=== PATIENT | female | born 1945 | race Caucasian/White ===

== ENCOUNTER → 2021-04-01 09:01 | Outpatient (BNVA) | payer MEDICARE, SELFPAY | PROVIDERS: PCP Nurse Practitioner Adult Health; Visit Provider Orthopaedic Surgery | DX: M17.11 Unilateral primary osteoarthritis, right knee (principal) | CPT/HCPCS: 20610; 99212; J1040 ==

== ENCOUNTER 2022-01-05 07:18 | Outpatient (REF) | payer MEDICARE, SELFPAY ==
--- NOTE | ~2022-01-05 | XR_ITS ---
EXAMINATION: XR KNEE STANDING, BILATERAL XR KNEE, RIGHT CLINICAL INFORMATION: Knee pain. COMPARISON: 06/28/2018 TECHNIQUE: Single view standing knees with 2 additional views right knee. FINDINGS: A left knee joint prosthesis is present which appears intact. Severe degenerative changes are present in the right knee with obliteration of the medial compartment and narrowing of the lateral compartment with chondrocalcinosis and calcification of the lateral meniscus. Marked degenerative changes are also seen at the patellofemoral compartment with marked osteophytes. A definite joint effusion is not seen at this time. Vascular calcifications noted. XR/XR knee RT 2V IMPRESSION: Severe tricompartmental osteoarthritis right knee without significant change.
--- NOTE | ~2022-01-05 | XR_ITS ---
EXAMINATION: XR KNEE STANDING, BILATERAL XR KNEE, RIGHT CLINICAL INFORMATION: Knee pain. COMPARISON: 06/28/2018 TECHNIQUE: Single view standing knees with 2 additional views right knee. FINDINGS: A left knee joint prosthesis is present which appears intact. Severe degenerative changes are present in the right knee with obliteration of the medial compartment and narrowing of the lateral compartment with chondrocalcinosis and calcification of the lateral meniscus. Marked degenerative changes are also seen at the patellofemoral compartment with marked osteophytes. A definite joint effusion is not seen at this time. Vascular calcifications noted. XR/XR knee standing BI IMPRESSION: Severe tricompartmental osteoarthritis right knee without significant change.
== END 2022-01-05 07:19 | disposition home or self-care (01) ==
LOC: HO.HOSX 07:18
PROVIDERS: Visit Provider Physician Assistant
DX: M17.11 Unilateral primary osteoarthritis, right knee (principal)
CPT/HCPCS: 20610; 73560; 73565; 99212; J1020

== ENCOUNTER → 2022-05-03 11:16 | Outpatient (BNVA) | payer MEDICARE, SELFPAY | PROVIDERS: PCP Nurse Practitioner Adult Health; Visit Provider Physician Assistant | DX: M17.11 Unilateral primary osteoarthritis, right knee (principal) | CPT/HCPCS: 20610; 99212; J1040 ==

== ENCOUNTER → 2022-10-14 12:28 | Outpatient (BNVA) | payer MEDICARE, SELFPAY | PROVIDERS: PCP Nurse Practitioner Adult Health; Visit Provider Physician Assistant | DX: M17.11 Unilateral primary osteoarthritis, right knee (principal); E11.9 Type 2 diabetes mellitus without complications | CPT/HCPCS: 20610; 99212; J1020 ==

== ENCOUNTER → 2023-01-11 10:52 | Outpatient (BNVA) | payer MEDICARE, SELFPAY | PROVIDERS: PCP Nurse Practitioner Adult Health; Visit Provider Physician Assistant | DX: M17.11 Unilateral primary osteoarthritis, right knee (principal); M25.561 Pain in right knee; Z96.652 Presence of left artificial knee joint | CPT/HCPCS: 20610; 99212; J1020 ==

== ENCOUNTER 2023-09-22 09:48 | Outpatient (AMB) | payer MEDICARE, SELFPAY ==
--- NOTE | 2023-09-22 10:12 | A.OFFVIS_ITS ---
Intake Intake Visit Reasons: OV - RT knee injection, last inj 01/11/23 Intake Note: Leticia is a 77 year old female who presents today for a repeat injection for her right knee, last injection 01/11/23. Allergies Sulfa (Sulfonamide Antibiotics) Allergy (Mild, Verified 01/11/23 10:56) HIVES HPI OV - RT knee injection, last inj 01/11/23 HPI Details Leticia is a 77 year old female who presents today for a repeat injection for her right knee, last injection 01/11/23. She reorts that the last injection gave her great relief but for a few days s/p injection she had increased pain. I did educate the patient that that may happen again after repeat injection. [facility] Medical History Diabetes HTN (hypertension) Osteoarthritis Urinary incontinence Surgical History History of left knee replacement Social History Alcohol intake: never Patient Tobacco Use Status: Never used Tobacco Current occupational status: disabled Review of Systems Const All systems reviewed & are unremarkable except as noted in HPI and below Physical Exam Const General: cooperative and no acute distress Orientation/consciousness: patient oriented x3 Resp Effort & Inspection: normal respiratory effort and able to speak in complete sentences Cardio Rate: regular rate Peripheral pulses: Peripheral pulses 2+ throughout GI Palpation (GI): Soft to palpation Skin Lesions: no lesions Rashes: no rashes Neuro General: patient oriented x3 Extrem Other: Right knee normal to inspection no ecchymosis, erythema or joint effusion. Crepitus felt on ROM. Patient is able to demonstrate full knee ROM. NVI. Psych Mental Status: mental status grossly normal Office Procedures Joint Injection/Drain Joint Injection/Drain Primary Site: right knee Prep: site was prepped using aseptic technique, ethochloride spray was applied and injection warnings given Injected: 40 mg of, DepoMedrol, with 8 mL of (2% plain lido ) and in the joint Approach Used: anterolateral Procedure: The patient tolerated the procedure well, but had some pain with the injection and there was some relief with the local anesthesia Coding 52211 - Large joint Procedure code (CPT) selection complete Assessment & Plan Assessment & Plan (1) Primary osteoarthritis of right knee: Code(s): M17.11 - Unilateral primary osteoarthritis, right knee (2) Diabetes mellitus: Code(s): E11.9 - Type 2 diabetes mellitus without complications Plan Leticia is a 77 year old female who presents today for a repeat injection for her right knee, last injection 01/11/23. She ambulates with a rollator walker. She reports that the last injection gave her great relief but for a few days s/p injection she had increased pain. I did educate the patient that that may happen again after repeat injection. After obtaining consent I injected the right knee with 40mg Depo. The patient tolerated the procedure well with no adverse effects. She will followup prn, sooner if needed Patient Instructions: Scribed for Farrah García PA-C by Xin Clarke medical device engineer, on 09/22/2023 at 10:02 am, EST. Coding Level of Care Code Est Pt Level 3 (96032) Diagnoses Primary osteoarthritis of right knee M17.11 Diabetes mellitus E11.9 CPT Codes Coding - 46170 Large joint: 02415 - Large joint ([id number])
== END 2023-09-22 10:12 | disposition home or self-care (01) ==
PROVIDERS: PCP Nurse Practitioner Adult Health; Visit Provider Physician Assistant
DX: M17.11 Unilateral primary osteoarthritis, right knee (principal)
CPT/HCPCS: 20610; 99213

== ENCOUNTER → 2023-09-22 09:48 | Outpatient (BNVA) | payer MEDICARE, SELFPAY | PROVIDERS: PCP Nurse Practitioner Adult Health; Visit Provider Physician Assistant | DX: M17.11 Unilateral primary osteoarthritis, right knee (principal); E11.9 Type 2 diabetes mellitus without complications | CPT/HCPCS: 20610; 99212; J1020 ==

== ENCOUNTER 2024-02-16 11:01 | Outpatient (AMB) | payer MEDICARE, SELFPAY ==
--- NOTE | 2024-02-16 11:13 | A.OFFVIS_ITS ---
Intake Visit Reasons: O/V RT knee injection, last inj 09/22/23 Intake Note: Leticia is a 77 year old female who presents today for a repeat injection for her right knee, last injection 09/22/23. Patient reports that her last injection gave her about 3 months. Allergies Sulfa (Sulfonamide Antibiotics) Allergy (Mild, Verified 01/11/23 10:56) HIVES HPI HPI O/V RT knee injection, last inj 09/22/23: Details: 78-year-old female who presents in the office today for a follow up of right knee OA. I last saw the patient in the office on 09/22/2023 when she was given a cortisone injection in the right knee. While in the office the patient reports that her last injection gave her about 3 months relief. Patient has a significant medical history of diabetes mellitus. [facility] Medical History Diabetes HTN (hypertension) Osteoarthritis Urinary incontinence Surgical History History of left knee replacement Social History Alcohol intake: never Patient Tobacco Use Status: Never used Tobacco Current occupational status: disabled Review of Systems Const All systems reviewed & are unremarkable except as noted in HPI and below Physical Exam Const General: cooperative, healthy appearing and no acute distress Resp Effort & Inspection: normal respiratory effort and able to speak in complete sentences Cardio Rate: regular rate Peripheral pulses: Peripheral pulses 2+ throughout GI Palpation (GI): Soft to palpation Skin Lesions: no lesions Rashes: no rashes Extrem Other: Right knee: normal to inspection no ecchymosis, erythema or joint effusion. Crepitus felt on ROM. Patient is able to demonstrate full knee ROM. NVI. Office Procedures Joint Injection/Drain Joint Injection/Drain Primary Site: right knee Prep: site was prepped using aseptic technique, ethochloride spray was applied and injection warnings given Injected: 40 mg of, DepoMedrol, with 8 mL of (2% plain lido ) and in the joint Approach Used: anterolateral Procedure: The patient tolerated the procedure well, but had some pain with the injection and there was some relief with the local anesthesia Coding 39652 - Large joint Procedure code (CPT) selection complete Assessment & Plan Assessment & Plan (1) Primary osteoarthritis of right knee: Code(s): M17.11 - Unilateral primary osteoarthritis, right knee Category: Medical (2) Diabetes mellitus: Code(s): E11.9 - Type 2 diabetes mellitus without complications Category: Medical Plan Ms. Apple is a 78-year-old female who presents in the office today for a follow up of right knee OA. I last saw the patient in the office on 09/22/2023 when she was given a cortisone injection in the right knee. While in the office the patient reports that her last injection gave her about 3 months relief. Patient has a significant medical history of diabetes mellitus. The patient was offered a cortisone injection in the right knee with 40 mg of DepoMedrol. The patient was explained the risk, benefits, and alternatives to receiving this injection. After receiving consent for the injection, the patient had the procedure done while in the office today. The patient tolerated the procedure well with no complications. Due to the patient?s history of diabetes, they were instructed to monitor her blood glucose level. The patient was informed that they could see a rise in their numbers and if the numbers became too high, they were instructed to call their PCP. The patient was also informed that they could have facial flushing as a side effect of the injection, but this will pass. Follow up will be PRN, or sooner if needed. Patient Instructions: Scribed by Xin Clarke medical laboratory technologist, for Farrah García PA-C on 02/16/2024 at 11:34 am, EST. Coding Level of Care Code Est Pt Level 4 (66680) Diagnoses Primary osteoarthritis of right knee M17.11 Diabetes mellitus E11.9 CPT Codes Coding - 05202 Large joint: 94556 - Large joint ([id number])
== END 2024-02-16 11:17 | disposition home or self-care (01) ==
PROVIDERS: PCP Nurse Practitioner Adult Health; Visit Provider Physician Assistant
DX: M17.11 Unilateral primary osteoarthritis, right knee (principal); E11.9 Type 2 diabetes mellitus without complications
CPT/HCPCS: 20610; 99214

== ENCOUNTER → 2024-02-16 11:01 | Outpatient (BNVA) | payer MEDICARE, SELFPAY | PROVIDERS: PCP Nurse Practitioner Adult Health; Visit Provider Physician Assistant | DX: M17.11 Unilateral primary osteoarthritis, right knee (principal); E11.9 Type 2 diabetes mellitus without complications | CPT/HCPCS: 20610; 99212; J1010 ==

== ENCOUNTER 2024-06-29 09:08 | Outpatient (AMB) | payer MEDICARE, SELFPAY ==
--- NOTE | 2024-06-29 09:23 | MHC.OFFVIS ---
Intake Visit Reasons: right knee injection, last inj 02/16/24 Intake Note: Leticia is a 77 year old female who presents today for a repeat injection for her right knee, last injection 02/16/24. Patient reports her last injection gave her relief and would like to repeat. Allergies Sulfa (Sulfonamide Antibiotics) Allergy (Mild, Verified 06/29/24 09:30) HIVES HPI HPI right knee injection, last inj 02/16/24: Details: 78-year-old female who presents in the office today for a follow-up of right knee osteoarthritis. I last saw the patient in the office on 02/16/24 when she was given a cortisone injection in the right knee. While in the office today, the patient reports her last cortisone injection gave her relief. She is interested in repeating the injections today. Patient has a significant medical history of diabetes mellitus. [facility] Medical History Diabetes HTN (hypertension) Osteoarthritis Urinary incontinence Surgical History History of left knee replacement Social History Alcohol intake: never Patient Tobacco Use Status: Never used Tobacco Current occupational status: disabled Review of Systems Const All systems reviewed & are unremarkable except as noted in HPI and below Physical Exam Const General: cooperative, healthy appearing and no acute distress Resp Effort & Inspection: normal respiratory effort and able to speak in complete sentences Cardio Rate: regular rate Peripheral pulses: Peripheral pulses 2+ throughout GI Palpation (GI): Soft to palpation Skin Lesions: no lesions Rashes: no rashes Extrem Other: Right knee: Normal to inspection no ecchymosis, erythema or joint effusion. Crepitus felt on ROM. Patient is able to demonstrate full knee ROM. NVI. Office Procedures Joint Injection/Aspiration Joint Injection/Aspiration Primary Site: right knee Prep: site was prepped using aseptic technique, ethochloride spray was applied and injection warnings given Injected: 40 mg of, DepoMedrol, with 8 mL of (2% plain lido ) and in the joint Approach Used: anterolateral Procedure: The patient tolerated the procedure well, but had some pain with the injection and there was some relief with the local anesthesia Coding 50303 - Large joint Procedure code (CPT) selection complete Assessment & Plan Assessment & Plan (1) Primary osteoarthritis of right knee: Code(s): M17.11 - Unilateral primary osteoarthritis, right knee Category: Medical (2) Diabetes mellitus: Code(s): E11.9 - Type 2 diabetes mellitus without complications Category: Medical Plan Ms. Apple is a 78-year-old female who presents in the office today for a follow-up of right knee osteoarthritis. I last saw the patient in the office on 02/16/24 when she was given a cortisone injection in the right knee. While in the office today, the patient reports her last cortisone injection gave her relief. She is interested in repeating the injections today. Patient has a significant medical history of diabetes mellitus. The patient was offered a cortisone injection in the right knee with 40 mg of DepoMedrol. The patient was explained the risks, benefits, and alternatives to receiving this injection. After receiving consent for the injection, the patient had the procedure done while in the office today. The patient tolerated the procedure well with no complications. Due to the patient?s history of diabetes, they were instructed to monitor her blood glucose level. The patient was informed that they could see a rise in their numbers and if the numbers became too high, they were instructed to call their PCP. The patient was also informed that they could have facial flushing as a side effect of the injection, but this will pass. Follow up will be PRN, or sooner if needed. Patient Instructions: Scribed by Ashwini Brandt medical instrument cable fabricator, for Farrah García PA-C on 06/29/24 at 9:40 am EST. Coding Level of Care Code Est Pt Level 4 (45224) Diagnoses Primary osteoarthritis of right knee M17.11 Diabetes mellitus E11.9 CPT Codes Coding - 96704 Large joint: 51336 - Large joint ([id number])
== END 2024-06-29 09:36 | disposition home or self-care (01) ==
PROVIDERS: PCP Nurse Practitioner Adult Health; Visit Provider Physician Assistant
DX: M17.11 Unilateral primary osteoarthritis, right knee (principal); E11.9 Type 2 diabetes mellitus without complications
CPT/HCPCS: 20610; 99214

== ENCOUNTER → 2024-06-29 09:08 | Outpatient (BNVA) | payer MEDICARE, SELFPAY | PROVIDERS: PCP Nurse Practitioner Adult Health; Visit Provider Physician Assistant | DX: M17.11 Unilateral primary osteoarthritis, right knee (principal); E11.9 Type 2 diabetes mellitus without complications | CPT/HCPCS: 20610; 99212; J1010 ==

== ENCOUNTER 2025-08-08 10:43 | Outpatient (AMB) | payer MEDICARE, SELFPAY ==
--- NOTE | 2025-08-08 10:53 | MHC.OFFVIS ---
Intake Visit Reasons: Inj-RT knee inj., last injection 06/29/24 Intake Note: Leticia is a 79 year old female who presents today for a repeat injection for her right knee, last injection was 06/29/24. Allergies Sulfa (Sulfonamide Antibiotics) Allergy (Mild, Verified 06/29/24 09:30) HIVES HPI HPI Inj-RT knee inj., last injection 06/29/24: Details: Ms. Apple this is a 79-year-old female who presents to the office today for follow up of chronic right knee pain. Last cortisone injection was 06/29/2024 which gave her relief. She is looking to repeat injection while in the office today. [facility] Medical History Diabetes HTN (hypertension) Osteoarthritis Urinary incontinence Surgical History History of left knee replacement Social History Alcohol intake: never Patient Tobacco Use Status: Never used Tobacco Current occupational status: disabled Review of Systems Const All systems reviewed & are unremarkable except as noted in HPI and below Physical Exam Const General: cooperative, healthy appearing and no acute distress Resp Effort & Inspection: normal respiratory effort and able to speak in complete sentences Cardio Rate: regular rate Peripheral pulses: Peripheral pulses 2+ throughout GI Palpation (GI): Soft to palpation Skin Lesions: no lesions Rashes: no rashes Extrem Other: Right knee: Normal to inspection no ecchymosis, erythema or joint effusion. Crepitus felt on ROM. Patient is able to demonstrate full knee ROM. NVI. Office Procedures AMB Joint Injection/Aspiration Joint Injection/Aspiration Primary Site: right knee Prep: site was prepped using aseptic technique, ethochloride spray was applied and injection warnings given Injected: 40 mg of, with 3 mL of, 1% plain lidocaine, 0.25% bupivacaine, in the joint and decadron Approach Used: anterolateral Procedure: The patient tolerated the procedure well, but had some pain with the injection and there was some relief with the local anesthesia Coding 39475 - Large joint Procedure code (CPT) selection complete Assessment & Plan Assessment & Plan (1) Primary osteoarthritis of right knee: Code(s): M17.11 - Unilateral primary osteoarthritis, right knee Category: Medical Plan Ms. Apple this is a 79-year-old female who presents to the office today for follow up of chronic right knee pain. Last cortisone injection was 06/29/2024 which gave her relief. She is looking to repeat injection while in the office today. The patient was offered a cortisone injection in the right knee. The patient was explained the risks, benefits, and alternatives to receiving this injection. After receiving consent for the injection, the patient had the procedure done while in the office today. The patient tolerated the procedure well with no complications. Follow-up will be PRN, or sooner if needed Coding Level of Care Code Est Pt Level 3 (20536) Diagnoses Primary osteoarthritis of right knee M17.11 CPT Codes Coding - 72069 Large joint: 15412 - Large joint ([id number])
--- OUTSIDE RECORDS SUMMARY | 2025-08-08 13:01 | XMS_ITS | Clinical Summary ---
Author Organization [facility] Address [address] [place] [id number] Phone Care Team Providers Care Hydrometer Calibrator Name Role Phone Zheng Crews [facility] Primary Care Provider [phone] Constantino Sher MD Unavailable [phone] Rosemary Hough MD Unavailable [phone] Chani Potter OD Unavailable Unavailable Eliot Gottlieb MD Unavailable Ailin Mendoza MD Unavailable [phone] Zheng Crews [facility] Unavailable Franck Brown MD Unavailable Allergies Active Allergy Reactions Criticality Noted Date Comments Sulfa (Sulfonamide Antibiotics) Hives 06/03 Medications lancets (ONETOUCH DELICA LANCETS) 33 gauge MiscIndications :Type 2 diabetes mellitus with diabetic neuropathy, with long-term current use of insulin Inject 1 each into the skin 2 (two) times a day. DX:E11.40 200 each 3 08/17/20 21 Active acetaminophen (TYLENOL) 500 MG tablet Take 1,000 mg by mouth as needed. Active ONETOUCH ULTRA TEST Strp stripsIndicatio ns:Type 2 diabetes mellitus with diabetic neuropathy, with long-term current use of insulin Inject 1 each into the skin 3 (three) times a day. E11.40 300 strip 3 01/15/20 23 Active vitamins A,C,E-zinc-tao er (PRESERVISION AREDS) 4,296 mcg-226 mg-90 mg Cap Take 1 capsule by mouth 2 (two) times a day with meals. Active blood-glucose sensor (FREESTYLE LAI 3 SENSOR) Smita by Miscellaneous route. Active gabapentin (NEURONTIN) 300 MG capsuleIndicati ons:Type 2 diabetes mellitus with diabetic neuropathy, with long-term current use of insulin TAKE 1 CAPSULE BY MOUTH EVERY DAY WITH DINNER 90 capsule 3 08/16/20 24 Active BD VICKI 2ND GEN PEN NEEDLE 32 gauge x NdleIndications :Type 2 diabetes mellitus with diabetic neuropathy, with long-term current use of insulin USE TO INJECT INSULIN UNDER THE SKIN ONCE DAILY DX:E11.40 100 each 3 08/16/20 24 Active metoprolol succinate (TOPROL-XL) 25 MG 24 hr tabletIndicatio ns:Essential hypertension TAKE 1 TABLET BY MOUTH EVERY DAY 90 tablet 10/12/19 25 Active LANTUS SOLOSTAR U-100 INSULIN 100 unit/mL (3 mL) InPn injection penIndications: Type 2 diabetes mellitus with diabetic neuropathy, with long-term current use of insulin,Type 2 diabetes mellitus with stage 3a chronic kidney disease, with long-term current use of insulin Inject 60 Units under the skin daily. E11.40 60 mL 3 10/18/19 25 Active Additional Information Patient taking differently: 45 UnitsSubcutaneous Daily, E11.40, Reported on 06/10/2025 XARELTO 20 mg TabIndications: Paroxysmal atrial fibrillation TAKE 1 TABLET BY MOUTH EVERY DAY WITH DINNER 90 tablet 3 11/12/19 25 Active metFORMIN (GLUCOPHAGE) 500 MG tabletIndicatio ns:Type 2 diabetes mellitus with diabetic neuropathy, with long-term current use of insulin TAKE 2 TABLETS BY MOUTH DAILY WITH DINNER 180 tablet 3 01/22/20 25 Active lisinopril (PRINIVIL,ZESTR IL) 20 MG tabletIndicatio ns:Essential hypertension TAKE 1 TABLET BY MOUTH EVERY DAY 90 tablet 3 01/26/20 25 Active furosemide (LASIX) 20 MG tablet Take 20 mg by mouth. 0 25 Active triamcinolone acetonide 0.1 % cream Apply topically 2 (two) times a day. APPLY TO AFFECTED AREA 30 g 05/13/20 25 Active atorvastatin (LIPITOR) 20 MG tablet TAKE 1 TABLET BY MOUTH EVERY DAY 90 tablet 3 06/04/20 25 Active celecoxib (CELEBREX) 200 MG capsule Take 200 mg by mouth daily. Active Active Problems Problem Noted Date Diagnosed Date Left epiretinal membrane 04/08/2023 Medicare annual wellness visit, subsequent 04/06 Assessment & Plan (06/10/2025 3:23 PM EDT): Eligible for seasonal flu shot. Eligible for Covid vaccine in September. She will call to schedule mammogram and DXA at [facility]. Colon cancer screening has been discontinued. Labs are up to date. Assessment & Plan (04/11/2024 11:42 AM EDT): I recommend seasonal Covid and flu shot. Continue regular mammography. She is not sure if she would be able to lie flat for DXA but is willing to attempt. Continue regular dental care. She elects to continue yearly FIT testing and this is provided today. Assessment & Plan (04/06/2023 4:36 PM EDT): Immunizations are up to date. Continue regular mammography. We discussed baseline DXA; she recalls having one years ago but report is not available in [facility] or old chart. Activity is limited due to mobility issues. She elects to continue colon cancer screening with FIT and understands that a positive result would warrant further evaluation with colonoscopy. Labs as below. Continue regular dental and eye care. Postmenopausal 04/06/2023 Assessment & Plan (06/10/2025 3:23 PM EDT): Orders: DXA Screening; Future Type 2 diabetes mellitus wit h stage 3a chronic kidney disease, with long-term current use of insulin 01/11/2022 Assessment & Plan (06/10/2025 3:23 PM EDT): CKD is stable. She is taking Celebrex for knee pain but will stop after her refill runs out. Reminded to do urine kidney test. Assessment & Plan (01/28/2025 12:53 PM EDT): Most recent GFR on file is 58 Blood pressure goal is <130/80, blood pressure is elevated today Continues on regimen which includes ACEi Glucose control has been stable in excellent range, overall average tends toward lower portion of the target range so we discussed reduction of basal insulin dosage today to reduce risk for hypoglycemia Diet remains good mostly, CGM is helpful in guiding eating Leticia is encouraged to continue her excellent efforts, she is advised to be in touch with me with any questions or concerns, we will follow up in 6 months Assessment & Plan (10/15/2024 10:07 AM EST): Update CMP with next labs. Last GFR was 58. Assessment & Plan (07/31/2024 9:25 AM EDT): Most recent GFR on file is 58 Blood pressure goal is <130/80, blood pressure is in excellent control today Continues on regimen which includes ACEi Glucose control has been stable in excellent range, overall average tends toward lower portion of the target range so we discussed reduction of basal insulin dosage today to reduce risk for hypoglycemia Diet remains good mostly, CGM is helpful in guiding eating Leticia is encouraged to continue her excellent efforts, she is advised to be in touch with me with any questions or concerns Assessment & Plan (04/11/2024 11:38 AM EDT): Labs ordered. She will submit a home urine microalbumin/creatinine ratio (first void). BP is at goal today. Continue current medications. Advice to reduce PM insulin the next few night (52-54 units) and call if she continues to experience lows. Update LDL today; last was at goal. Labs as ordered. Assessment & Plan (02/28/2024 1:30 PM EDT): Most recent GFR on file is 52 Blood pressure goal is <130/80, blood pressure is borderline today Continues on regimen which includes ACEi Glucose control has been stable in excellent range, diet remains good mostly especially now since utilizing CGM We discussed reduced basal insulin dosage as noted Leticia is encouraged to continue her excellent efforts, she is advised to be in touch with me with any questions or concerns Assessment & Plan (10/07/2023 11:26 AM EST): Monitor renal function once or twice yearly. She did have an episode of asymptomatic hypoglycemia last week and needs CGM for the management of this. Continue to monitor blood sugars for improvement to baseline. Assessment & Plan (07/25/2023 12:58 PM EDT): Most recent GFR on file is 59 Blood pressure goal is <130/80, blood pressure is in excellent control today Continues on regimen which includes ACEi Glucose control has been stable in excellent range, diet remains good mostly with some variation CGM use should be helpful to Leticia in evaluating effects of diet and lifestyle habits on her glucose patterns Leticia is encouraged to continue her excellent efforts, she is advised to be in touch with me with any questions or concerns Assessment & Plan (04/06/2023 4:40 PM EDT): Update urine test with next labs. Continue ACEI. Blood glucose readings sound improved. Assessment & Plan (01/14/2023 10:05 AM EDT): Most recent GFR on file is 58 Blood pressure goal is <130/80, blood pressure is in excellent control today Continues on regimen which includes ACEi Glucose control is improved compared to last summer, diet remains good Leticia is encouraged to continue her excellent efforts Assessment & Plan (07/13/2022 1:30 PM EDT): Most recent GFR on file is 58 Blood pressure goal is <130/80 Continues on ACEi Glucose control is good though return to A1c <7% would be ideal as long as hypoglycemia does not occur Assessment & Plan (01/11/2022 10:40 AM EDT): Most recent GFR on file is 55 Blood pressure is above goal, ideally this should be <130/80 Continues on ACEi Glucose control is good though return to A1c <7% would be ideal as long as hypoglycemia does not occur Arthralgia of multiple sites 04/16/2021 Assessment & Plan (04/16/2021 11:03 PM EDT): Joint protection, energy conservation. Gentle, regular exercise routine. Avoid falls, injuries, overuse. Work diligently on her body weight as close as possible to ideal range for her height. She may benefit from topical cream such as Arnica, Biofreeze, Aspercreme versus medicated patches such as salonpas, icy hot patch 2-3 times daily and if necessary at bedtime x 3 weeks. I have encouraged her to continue regular involvement in hobbies/favorite activities that may also reduce severity of her chronic diffuse body pain. She may benefit greatly from using knowledge about mindfulness approach as described in book written by Dr West Mccracken Full catastrophe living Venous stasis dermatitis of both lower extremiti es 04/16/2021 Assessment & Plan (03/11/2022 3:50 PM EDT): She has venous insufficiency. She's currently managing conservatively. She should have venous studies to assess if ablation is appropriate should conservative management fail. Assessment & Plan (04/16/2021 10:53 PM EDT): Encouraged to walk around the house and keep feet elevated above the heart level every 2 hours for 15-20 minutes. She would benefit from proper use of compression stockings put first thing in the morning when the feet and ankles are the slimmest before taking legs off the bed and keeping the stockings until she goes back to bed for night rest. Chronic midline low back pain without sciatica 0 04/16/2021 Assessment & Plan (04/16/2021 11:00 PM EDT): Avoid stooping, bending, heavy lifting, sudden turns, falls and injuries. I have explained to her that medically I am not able to reverse chronic bony changes in her spine that we reviewed together on the computer screen but she may reduce the symptoms by keeping her core muscle the strongest, working on bringing her body weight into ideal range for her height, using regularly topical cream such as Arnica, Biofreeze, Voltaren, Aspercreme, blue emu versus medicated patches such as Salonpas or IcyHot patch 2-3 times daily and as needed at bedtime x 3 weeks that may reduce the need for Tylenol. She is not interested in steroid injections or surgeries at this time. In addition to formal PT that I offered her to she is encouraged to use her walk- in swimming pool regularly. 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 Lantus dose was reduced and overnight lows have improved. Follow up with Dr. Hough as planned. Continue regular eye care. Assessment & Plan (01/28/2025 12:52 PM EDT): Continues to do well on current antihyperglycemic regimen, continues to adjust basal insulin modestly based on eating habits, based on CGM data in overnight period we discussed another decrease in basal insulin dosage Leticia continues to find CGM helpful in making good decisions about meals and snacks, this has been particularly helpful as she has been running lower in the overnight period Encouraged to continue to follow healthy lifestyle habits as consistently as she can, Leticia has maintained consistent weight since our last visit last fall Continues on Gabapentin for DPN, she reports that she continues to have some paresthesias but has not taken Gabapentin consistently, she is concerned about side effects and cost We will follow up in 6 months, Leticia is encouraged to contact me with any questions or concerns in the interim This patient has diabetes This patient has been using a blood glucose meter and performing 4 or more blood glucose readings daily or is now using CGM This patient is insulin-treated with 3 or more daily injections OR a continuous subcutaneous insulin infusion pump This patient's insulin treatment regimen requires frequent adjustment by the patient on the basis of blood glucose meter readings or continuous glucose monitoring results This patient has had an in-person visit with the treating provider to evaluate diabetes control and determine criteria for CGM use This patient will return for follow up visits at least every 6 months to assess adherence to CGM regimen, the effect of the current diabetes treatment regimen and to have insulin and medication therapy adjusted as needed for optimal outcome Assessment & Plan (10/15/2024 10:07 AM EST): A1c well controlled with current regimen. Risk of hypoglycemia and fall being managed with CGM and care through surgical training specialist. She continues with gabapentin 300 mg once daily and feels that this is adequate. Give progressive nature of neuropathy and risk of fall, use assistive devices as able. She lives with her family. She is changing retinal care to a new provider. Last diabetic eye exam note requested. Orders: CBC; Future Comprehensive metabolic panel; Future Hemoglobin A1c; Future Microalbumin/creatinine ratio, random urine; Future Assessment & Plan (07/31/2024 9:23 AM EDT): Doing well on current antihyperglycemic regimen, continues to adjust basal insulin modestly based on eating habits, based on CGM data in overnight period we discussed another decrease in basal insulin dosage and modest if any adjustment up from this based on eating Leticia continues to find CGM helpful in making good decisions about meals and snacks, this has been particularly helpful as she has been running lower in the overnight period Encouraged to continue to follow healthy lifestyle habits as consistently as she can, Leticia has had consistent, gradual weight loss over the past 18 months which is just over 30lb, this is likely impacting insulin requirement Continues on Gabapentin for DPN, she reports that she continues to have some paresthesias and feels a higher dose would be helpful, has tried 600mg a few times, not consistently, she is concerned about side effects, we discussed that Leticia could try a more modest increase in dosage such as 400mg but this would require a new prescription, she is advised to keep in touch with me about this We will follow up in 6 months, Leticia is encouraged to contact me with any questions or concerns in the interim Assessment & Plan (04/11/2024 11:40 AM EDT): On gabapentin through Dr. Hough. Assessment & Plan (02/28/2024 1:31 PM EDT): Doing well on current antihyperglycemic regimen, continues to adjust basal insulin modestly based on eating habits, based on CGM data today we discussed a decrease in basal insulin dosage and modest if any adjustment up from this based on eating Leticia is finding CGM helpful in making good decisions about meals and snacks, this has been particularly helpful as she has been running lower in the overnight period Encouraged to continue to follow healthy lifestyle habits as consistently as she can, Leticia has had weight loss since our last visit of nearly 10lbs, this is likely impacting insulin requirement Continues on Gabapentin for DPN which she reports that she continues to have some paresthesias and feels a higher dose would be helpful, we reviewed timing of Gabapentin a bit earlier in the evening may also be effective at current dose, rx updated to allow for option of increasing this We will follow up in 6 months, Leticai is encouraged to contact me with any questions or concerns in the interim Assessment & Plan (11/22/2023 11:28 AM EST): She has increase insulin intermittently when she has had a high reading and food intake has been poor with acute zoster. I asked her to reduce her Basaglar to 55 units at bedtime and will cc this note to Dr. Hough and her staff to check back on trends in the next week. Call Dr. Hoguh's office with persistent lows. Assessment & Plan (10/07/2023 11:25 AM EST): Neuropathy adequately managed with gabapentin once daily. She will continue to see her eye doctors regularly; no retinopathy on last visit. Continue current medications; A1c is well controlled. RSV vaccine recommended and she will get this at the pharmacy. Assessment & Plan (07/25/2023 12:55 PM EDT): Doing well on current antihyperglycemic regimen, continues to adjust basal insulin modestly based on eating habits, based on reported FPG this is working well for Leticia We discussed evaluating prandial glucose and possible lifestyle modifications that this may point to to further improve glucose control, we discussed CGM which would be covered by Medicare given that Leticia is on insulin therapy, she is given a Libre3 sensor sample, provided instructions on use, provided help with setting up mobile pk and sharing with our practice, Leticia is encouraged to let me know if she would feel like this could be beneficial to her and we will start order if so Encouraged to continue to follow healthy lifestyle habits as consistently as she can Continues on Gabapentin for DPN which she reports is working well for her We will follow up in 6 months, Leticia is encouraged to contact me with any questions or concerns in the interim Assessment & Plan (04/06/2023 4:39 PM EDT): She tried increased dose of gabapentin with resultant daytime fatigue. Continue current dosing; she will confirm she is taking 300 mg daily. Encouraged care with ambulation at home; she is not interested in using assistive devices in the house. Assessment & Plan (01/14/2023 10:03 AM EDT): Doing well on current antihyperglycemic regimen, adjusts basal insulin modestly based on eating habits, based on reported FPG this is working well for Leticia Encouraged to continue to follow healthy lifestyle habits as consistently as she can We discussed Leticia's DPN pain and though she is tolerating Gabapentin well, it is only modestly helpful, she is taking 300mg every night and times this earlier in the evening prior to onset of most troublesome symptoms, we discussed a trial of increased dose of Gabapentin to 600mg once daily in the evening We revisited the potential for sedation from Gabapentin therapy and also possible effect on imbalance though this should may not be noticed during the day when dosed in the evening We will follow up in 6 months, Leticia is encouraged to contact me with any questions or concerns in the interim Assessment & Plan (07/13/2022 1:29 PM EDT): Doing well on current antihyperglycemic regimen, adjusts basal insulin modestly based on eating habits, we reviewed strategies if insulin dosage is accidentally omitted Encouraged to continue to follow healthy lifestyle habits as consistently as she can We discussed Leticia's worsening DPN symptoms and she has found Gabapentin helpful even at small dose, she is taking this every night but usually around bedtime when her symptoms have already started, we discussed timing this earlier such as with her other meds in late afternoon/early evening which may help prevent the onset of symptoms which occur later in the evening We revisited the potential for sedation from Gabapentin therapy We will follow up in 6 months, Leticia is encouraged to contact me with any questions or concerns in the interim Assessment & Plan (01/11/2022 10:35 AM EDT): Doing well on current antihyperglycemic regimen, adjusts basal insulin modestly based on eating habits and we revisited this again today Encouraged to continue to work on healthy lifestyle habits as consistently as she can, we discussed the role that sleep quality plays in glucose control We revisited Leticia's worsening DPN symptoms and she has found Gabapentin helpful even at small dose, she does not take this every night We discussed optimized dosage of Gabapentin which is likely to be more effective for her pain as well as helping to improve her sleep, Leticia will initially increase to 200mg and then to 300mg once daily in the evening, she is made aware that more consistent use of this will have a more consistent effect in the overnight period and particularly for sleep effect though the short duration of action of this medication does make it ok to take prn if she prefers We will follow up in 6 months, Leticia is encouraged to contact me with any questions or concerns Assessment & Plan (07/16/2021 1:38 PM EDT): Doing well on current antihyperglycemic regimen, adjusts basal insulin modestly based on eating habits, mostly 54 units nightly Encouraged to continue to work on healthy lifestyle habits as consistently as she can We had a lengthy discussion about Leticia's worsening DPN symptoms and she is agreeable to a trial of Gabapentin at small dose, we discussed potential side effects especially sedative side effects Leticia is aware that we can and likely will need to optimize the dosage of Gabapentin depending on her response, tolerability We will check in with Leticia in 2 weeks by phone to see how she is doing on Gabapentin and adjust dosage as needed We will follow up in 6 months, Leticia is encouraged to contact me with any questions or concerns Assessment & Plan (01/13/2021 11:29 AM EDT): Doing well on current antihyperglycemic regimen, adjusts basal insulin modestly based on eating habits Encouraged to continue to work on healthy lifestyle habits as consistently as she can We had a lengthy discussion about Leticia's worsening DPN symptoms and she is agreeable to a trial of Gabapentin at small dose, we discussed potential side effects especially sedative side effects Leticia is aware that we can and likely will need to optimize the dosage of Gabapentin depending on her response, tolerability We will check in with Leticia in 2 weeks by phone to see how she is doing on Gabapentin and adjust dosage as needed We will follow up in 6 months, Leticia is encouraged to contact me with any questions or concerns Assessment & Plan (07/14/2020 3:16 PM EDT): We discussed a modest reduction in basal insulin based on low normal FPG over past two weeks Leticia's overall insulin requirement is lower largely due to her improvement in diet, she is consistently eating a healthy diet which she attributes to no longer living alone and having to manage her meals only for herself, this has resulted in much less eating outside the home Increase in Metformin to 1500mg daily caused increase in GI upset largely due to the morning tablet being taken on an empty stomach with other meds, she tolerates her evening dose well and has returned to taking only this Leticia is encouraged to continue healthy diet, she is unable to be active due to physical limitations Advised to contact me with any questions or concerns Assessment & Plan (01/03/2020 10:07 AM EDT): We did not adjust insulin dose today but discussed that occasional increase in dose by 10% (58-60 units) may be warranted to reduce rise of blood sugar overnight Will trial an extra Metformin tab daily, will take 500mg in am and continue 1000mg in evening, if tolerates this well then will try 1000mg bid; in the past reduced to 1000mg once daily due to nausea Leticia is encouraged to continue to eat mostly homecooked meals, this has been a positive change due to current social distancing and closure of many restaurants Leticia is advised to reach out to me with any questions or concerns, we will plan to follow up in 6 months Intermediate stage nonexudat real age-related macular degeneration of both eyes 09/19/2018 Assessment & Plan (04/11/2024 11:40 AM EDT): Followed by Dr. Hicks. Assessment & Plan (04/06/2023 4:36 PM EDT): We will request the last note from Dr. Hicks. intermediate current use of anticoagulant 8 Assessment & Plan (03/09/2022 10:45 AM EDT): Besides expense. No issues. Discussed good Rx for help with medication costs. No changes. Assessment & Plan (04/16/2021 10:46 PM EDT): Due to chronic atrial fibrillation she needs to continue Eliquis exactly as prescribed. Avoid falls, injuries and cuts. Monitor for excessive bruising and bleeding. Lumbar facet arthropathy 07/25/2018 Myalgia 07/25/2018 Chronic bilateral low back pain without sciatica 07/25/2018 Lower leg edema 10/10/2017 Assessment & Plan (04/06/2023 4:36 PM EDT): Using furosemide 20 mg daily with effect but she skips this on days that she leaves the house because of urinary frequency. She will meet with Dr. Kenyon next week. Gait instability 10/10/2017 Imbalance 10/10/2017 Low back pain 10/10/2017 Assessment & Plan (02/27/2025 2:52 PM EDT): She is more bothered by acute right low back discomfort; I suspect acute SI joint dysfunction from favoring and gait change. Increase Tylenol to 2 tablets TID. Increase gabapentin to 300 mg TID for now. NSAIDs are contraindicated given Xarelot. Try topical ice or heat. Could use topical lidocaine patch OTC. No need for imaging at this time. Paroxysmal atrial fibrillation 10/10/2017 Assessment & Plan (06/10/2025 3:23 PM EDT): Managed by [facility]. She continues on BB and Xarelto. She is asymptomatic. D/C Celebrex as soon as possible given anticoagulation. Assessment & Plan (04/12/2025 3:19 PM EDT): EKG today shows sinus rhythm 86 bpm left axis deviation unchanged from prior EKGs. No symptoms concerning for her A-fib. She has been tolerating Xarelto just fine. She will continue on Xarelto 2 mg daily and metoprolol succinate 25 mg daily. No recent labs on file. Patient tells me she just had these done over at [facility] have request these. Assessment & Plan (02/27/2025 2:52 PM EDT): Assessment & Plan (10/15/2024 10:07 AM EST): Per smart watch <2% time in atrial fibrillation. She is asymptomatic. Continue BB and Xarelto. F/up with Dr. Gottlieb next month as scheduled. Assessment & Plan (04/11/2024 11:39 AM EDT): She denies palpitations. Dizziness is fairly constant so likely not related. Continue Xarelto and f/up with Dr. Gottlieb as planned. Assessment & Plan (10/07/2023 11:26 AM EST): On Xarelto and beta dwight through Dr. Kenyon. No palpitations. Assessment & Plan (04/06/2023 4:38 PM EDT): She will follow up with Dr. Gottlieb in May as planned. Assessment & Plan (03/09/2022 10:48 AM EDT): Patient has no symptoms related to this. She admits this isn't something she is aware of or feels if or when it occurs. We discussed some common indications and symptoms. Certainly if her heart is racing she'd know. Sinus rhythm on PE today. No changes. Primary osteoarthritis of right knee 10/10/2017 Assessment & Plan (04/06/2023 4:40 PM EDT): She is resistant to considering R TKA because she is aware of the need for rehab after her L sided surgery. Her last injection in January through [facility] did provide some benefit but she may transfer care to [facility] as she would have them do her procedure. Sciatica of left side 10/10/2017 Thyroid nodule 10/10/2017 Essential hypertension 08/27/2017 Assessment & Plan (06/10/2025 3:23 PM EDT): Adequately controlled on current regimen. Assessment & Plan (04/12/2025 3:17 PM EDT): Repeat blood pressure today 132/82. Patient currently does not monitor her blood pressure at home however she tells me her recent doctors office visits her blood pressure is usually very well-controlled around 112/70. Patient educated on HTN pathophysiology, htn medication, importance of low salt DASH heart healthy diet, exercise and home B/P monitoring. Patient will continue on current medications without change. Assessment & Plan (01/28/2025 12:50 PM EDT): Blood pressure goal is <130/80, blood pressure is elevated today Continues on regimen which includes ACEi Most recent GFR on file is 58 from last summer Assessment & Plan (10/15/2024 10:07 AM EST): Higher on my check but well controlled. Continue lisinopril and metoprolol. Assessment & Plan (07/31/2024 9:12 AM EDT): Blood pressure goal is <130/80, blood pressure is in excellent control today Continues on regimen which includes ACEi Assessment & Plan (04/11/2024 11:39 AM EDT): Goal <130/80. Continue current medications. Assessment & Plan (02/28/2024 1:25 PM EDT): Blood pressure goal is <130/80, blood pressure is borderline today Continues on regimen which includes ACEi Assessment & Plan (10/07/2023 11:27 AM EST): Blood pressure is low on my check. She will check home readings several times/week x 2-3 weeks and I'll reach out directly to request these readings. This could be causing her lightheadedness. If home BP readings are similar I would start with decreasing lisinopril to 10 mg daily. Call if lightheadedness worsens. Assessment & Plan (07/25/2023 12:51 PM EDT): Blood pressure goal is <130/80, blood pressure is in good range today Continues on regimen which includes ACEi Assessment & Plan (04/06/2023 4:37 PM EDT): Lower on my check. She may be a bit hypotensive in the morning. Ensure adequate water intake and call if dizziness worsens. She denies symptoms of atrial fibrillation. Assessment & Plan (01/14/2023 9:57 AM EDT): Blood pressure goal is <130/80, blood pressure is in good range today Continues on regimen which includes ACEi Assessment & Plan (07/13/2022 1:25 PM EDT): Blood pressure goal is <130/80 Continues on ACEi Weight loss and improved sleep patterns are likely to help improve blood pressure control Assessment & Plan (03/09/2022 10:46 AM EDT): Elevated today. We'll keep an eye on this. Patient will monitor at home for upward trend and report to the office as needed. No changes today. Assessment & Plan (01/11/2022 10:31 AM EDT): Blood pressure is elevated today, goal is <130/80 Continues on ACEi Weight loss and improved sleep patterns are likely to help improve blood sugars Assessment & Plan (07/16/2021 11:17 AM EDT): Blood pressure is well controlled Continues on ACEi Assessment & Plan (01/13/2021 11:25 AM EDT): Blood pressure is well controlled Continues on ACEi Assessment & Plan (07/14/2020 3:12 PM EDT): Blood pressure is well controlled Continues on ACEi Assessment & Plan (07/03/2019 12:46 PM EDT): Blood pressure is well controlled Continues on ACEi Assessment & Plan (12/11/2018 9:51 PM EDT): Blood pressure remains well controlled on current antihypertensive medication regimen which includes ACEi Assessment & Plan (07/24/2018 2:41 PM EDT): Blood pressure is in very good control Continues on ACEI Assessment & Plan (03/16/2018 5:26 PM EDT): Reasonable blood pressure control on current ACEI dose Has upcoming appointment with cardiology Assessment & Plan (12/05/2017 10:11 PM EST): Very good blood pressure control on current regimen which includes ACEI Assessment & Plan (09/01/2017 2:35 PM EST): Very well controlled blood pressure on current regimen which includes ACEI Blood pressure control is very important in light of diabetic retinopathy and early nephropathy, elevated blood pressure may lead to accelerated progression of these NAILA (obstructive sleep apnea) 08/27/2017 Assessment & Plan (04/16/2021 10:48 PM EDT): Consider reevaluating different options then CPAP due to her claustrophobia Assessment & Plan (12/05/2017 10:10 PM EST): Consistent with CPAP Class 2 severe obesity due t o excess calories with serious comorbidity and body mass index (BMI) of 38.0 to 38.9 in adult 08/27/2017 Assessment & Plan (06/10/2025 3:23 PM EDT): She has been more sedentary with the knee pain and recovery. Monitor portion sizes, try to add some gentle walking as able. Assessment & Plan (01/28/2025 12:48 PM EDT): Weight has been very stable since our last visit last fall BMI is now ~37 Encouraged to continue efforts at healthy eating as consistently as she can Activity is limited due to pain and balance issues Assessment & Plan (10/15/2024 10:07 AM EST): Weight is stable. Continue to make healthy choices. Assessment & Plan (07/31/2024 9:18 AM EDT): Has had about 10lb weight loss since November and overall >30lb weight loss over the past 18 months BMI is now ~37 Encouraged to continue efforts at healthy eating as consistently as she can Activity is limited due to pain and balance issues Assessment & Plan (04/11/2024 11:28 AM EDT): She has lost weight intentionally and finds that she is much more careful with food consumption with the feedback from CGM. Assessment & Plan (10/07/2023 11:26 AM EST): She feels that her pants are fitting better and she has not required furosemide recently. Assessment & Plan (07/25/2023 12:50 PM EDT): Has had about 10lb weight loss since January BMI is now <40 Encouraged to continue efforts at healthy eating as consistently as she can Activity is limited due to pain and balance issues Assessment & Plan (04/06/2023 4:37 PM EDT): Weight is down a bit since her last visit with Dr. Hough. She states that she has cut back a lot on her intake. Continue to monitor closely. Assessment & Plan (01/14/2023 9:58 AM EDT): Modest weight loss since November BMI remains >40 Encouraged to continue healthy diet Activity is limited due to pain and balance issues Assessment & Plan (07/16/2021 1:20 PM EDT): Discussed her small, 4 lb, weight loss and general trend of modest weight loss.. Encouraged to continue to strive for overall healthy diet. Discussed pros and cons of GLP1ra therapy which she will consider for future as necessary. Assessment & Plan (04/16/2021 10:49 PM EDT): I reviewed with Leticia crucial role of weight management in decreasing mechanical forces and strain to her joints in the lower back, knees and feet particularly. Portion control. Limit concentrated sugars, saturated fats and calories in the diet. Keep well-hydrated. If unable to achieve expected goal consider formal dietary/nutritional support. Assessment & Plan (01/13/2021 11:22 AM EDT): Weight in pounds has been stable between low to high 230s over past year, documented weight in August was an erroneous entry per Leticia Has done fairly well with diet, however unable to be active due to pain Assessment & Plan (07/03/2019 12:45 PM EDT): BMI has steadily risen from low to mid 40s, modest weight gain over the past year Would benefit from improvements in diet and activity to help with weight management though activity is limited by chronic pain Assessment & Plan (03/16/2018 4:56 PM EDT): Has had weight gain since her last visit, likely most of this is due to recent 2 week cruise Advised to work on healthy eating, continues to eat most meals outside the home and tries to make the best choices she can with these Unable to exercise due to chronic pain Assessment & Plan (12/05/2017 10:10 PM EST): Has been able to lose a modest amount of weight Leticia continues to eat most of her meals outside the home, this is likely contributing to higher caloric intake Unable to exercise regularly due to physical limitations Weight loss remains an important goal in improving metabolic parameters and glycemic control Assessment & Plan (09/01/2017 2:44 PM EST): Weight loss would be helpful in improving insulin sensitivity and overall glycemic control Leticia is unable to exercise and tends to eat all meals out, we have discussed these lifestyle factors but unfortunately Leticia is unable or unwilling to change these Encouraged 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 Continue statin at current dosing. Assessment & Plan (04/12/2025 3:20 PM EDT): Most recent LDL 52. Patient will continue on atorvastatin 20 mg daily with routine lipid and LFT function test with PCP yearly. Assessment & Plan (01/28/2025 12:50 PM EDT): Most recent LDL is in desired range, goal is at optimal goal, <55 Continues on moderate intensity statin therapy Continues efforts at healthy eating Assessment & Plan (10/15/2024 10:07 AM EST): LDL goal <55. Check fasting labs before [facility] to be scheduled in May. Continue statin which she tolerates. Orders: Lipid panel; Future Hemoglobin A1c; Future Assessment & Plan (07/31/2024 9:17 AM EDT): Most recent LDL is in desired range, goal is at optimal goal, <55 Continues on moderate intensity statin therapy Continues efforts at healthy eating Assessment & Plan (04/11/2024 11:39 AM EDT): Update lipid panel today. She tolerates atorvastatin. Assessment & Plan (02/28/2024 1:26 PM EDT): Most recent LDL is in desired range, goal is <70, though more optimally <55 Continues on moderate intensity statin therapy Continues efforts at healthy eating Assessment & Plan (10/07/2023 11:25 AM EST): LDL goal <70; she was at goal on last labs. Check yearly. Assessment & Plan (07/25/2023 12:52 PM EDT): Most recent LDL is in desired range, goal is <70 Continues on moderate intensity statin therapy Assessment & Plan (04/06/2023 4:38 PM EDT): Update fasting lipid panel. Continue atorvastatin 20 mg daily. Assessment & Plan (01/14/2023 9:58 AM EDT): Most recent LDL is in desired range, goal is <70 Continues on moderate intensity statin therapy Resolved Problems Problem Noted Date Diagnosed Date Resolved Date Preop examination 04/12/2025 06/10/2025 Assessment & Plan (04/12/2025 3:22 PM EDT): Patient is euvolemic on exam today. No symptoms concerning for heart failure exacerbation. Pt also is pretty active walks routinely walks up steps without having any symptoms concerning for angina. EKG today shows sinus rhythm 86 bpm left axis deviation unchanged from prior EKGs. I do not have any recent labs on patient I have requested these from [facility]. No additional cardiac testing is recommended before upcoming knee surgery. Dizziness and giddiness 04/11/2024 0905/2025 Assessment & Plan (04/11/2024 11:38 AM EDT): Uncertain etiology of dizziness. This could be related to her neuropathy, to weakness, could be intracranial or from the neck. She declines work up or PT evaluation. She will update eye exam given intermittent blurred vision recently. No deficits on examination today to suggest stroke/TIA. We discussed settings on her smart watch for fall alert to go to a family member. She will ask her [id number] to look into this. We reviewed that if she has head injury or LOC she needs urgent CT head given anticoagulation. She verbalizes understanding. Herpes zoster without complication 11/07/2023 06/10/2025 Assessment & Plan (11/22/2023 11:27 AM EST): Pain has improved significantly this week. We discussed taper off gabapentin and written instructions are provided. Call with new lesions. If she has persistent ocular symptoms she needs to return to her specialist. Assessment & Plan (11/18/2023 3:29 PM EST): Pain is slightly improved with more regular use of gabapentin and APAP. We discussed, again, prednisone. This may provide some improvement. Given her low blood sugars I am more comfortable starting this with close monitoring of blood sugar. If she continues to have overnight lows she will need to reduce her Basaglar dosing. I did prescribe a taper and reviewed the directions. She will start this tomorrow morning. Common side effects reviewed. We have scheduled a follow up visit next week after her visit with Dr. Gottlieb. Reviewed options for care/advice over the weekend. Assessment & Plan (11/11/2023 3:36 PM EST): Eye examination was reassuring earlier this week and she is not having focused ocular symptoms. She will complete the course of valacyclovir. I encouraged her to increase her gabapentin and to have her daughters/friends do what needs to happen around the home. She will take gabapentin 300 mg po TID consistently and monitor for improvements. Patient examined by Dr. Silver who agrees with this plan. We reviewed the importance of adequate rest, good nutrition and hydration. Leticia and I did discuss that prednisone is sometimes a useful adjunct but she has been really happy with her CGM and monitoring her dietary intake and blood sugar and prednisone taper is likely to increase her glucose. If pain does not improve over the weekend I would add prednisone. Otherwise, we'll follow up on 11/18; appointment is scheduled today. She agrees with plan. Assessment & Plan (11/07/2023 4:52 PM EST): Patient examined by Dr. Silver who agrees that this is zoster affecting V1 distribution. No lesions on the tip of the nose. She needs to see her eye doctor in the next 24 hours; she sent a message to a friend who works in that office and I sent an urgent referral. She declines to have nursing schedule her appointment today. She will start Valtrex 1 g TID x 7 days. She tolerates gabapentin at bedtime for diabetic neuropathy and will increase this to TID dosing. Warned of increased risk of sedation during the daytime and she won't drive with this dose. Non-healing skin lesion 10/07/2023 09/0 05/2025 Assessment & Plan (10/07/2023 11:24 AM EST): I asked her to call [facility] to see if she can have a focused visit for evaluation of left lower leg lesion before the end of December. Avoid picking at the area. Call with worsening. COVID 04/11/2022 10/07/2023 Trigger middle finger of left hand 11/30/2019 04/11/2024 Assessment & Plan (04/16/2021 10:51 PM EDT): Use warm pack prior to gentle, regular massage in a circular spiral motion starting from proximal crease along the L 3rd flexor tendon sheath to soften and possibly resolve developing thickening along the tendon sheath. If unable to manage despite regular massage and stretching may need to consider local steroid injection into flexor tendon sheath. Trigger ring finger of right hand 11/30/2019 04/11/2024 Cough due to bronchospasm 07/03/2019 Assessment & Plan (07/03/2019 12:55 PM EDT): Prolonged cough, some disruption of sleep Exam normal today with good air movement and no wheeze noted Previously on Albuterol inhaler and this was refilled for Leticia today Advised to follow up with PCP Abnormal CT scan, kidney 10/10/201705/2025 Glaucoma (increased eye pressure) 10/10/2017 09/20/2018 Glaucoma 10/10/2017 09/20/2018 Venous stasis dermatitis of right lower extremity 10/10/2017 04/16/2021 Encounters Date Type Department Care Team Description 07/08/2025 Orders Only [address] [place] [address] Provider, MD Ita 06/12/2025 11:06 AM EDT - 06/12/2025 11:59 PM EDT Hospital Encounter [facility] [address] [place] [address] Zheng Crews CNP Discharge Disposition: Home or Self Care 06/10/2025 3:00 PM EDT Office Visit [facility] [address] [place] [address] Zheng Crews CNP Medicare annual wellness visit, subsequent (Primary Dx); Type 2 diabetes mellitus with diabetic neuropathy, with long-term current use of insulin; Type 2 diabetes mellitus with stage 3a chronic kidney disease, with long-term current use of insulin; Paroxysmal atrial fibrillation; Essential hypertension; Hyperlipidemia associated with type 2 diabetes mellitus; Postmenopausal; Class 2 severe obesity due to excess calories with serious comorbidity and body mass index (BMI) of 38.0 to 38.9 in adult; Screening mammogram for breast cancer; Immunization counseling 06/04/2025 1:15 PM EDT - 06/04/2025 11:59 PM EDT Hospital Encounter [facility] [place] [address] [place] [address] Zheng Crews CNP Discharge Disposition: Home or Self Care 06/01/2025 Refill [facility] [address] [place] [address] Zheng Crews CNP Medication Refill 05/20/2025 2:00 PM EDT Telemedicine [facility] [address] [place] [id number] Omayra De La Rosa CNP COVID-19 (Primary Dx) from Last 3 Months Immunizations Immunization Administration Dates Next Due COVID-19 (Pre-07/25) Moderna Vaccine, Bivalent 6mo+ 01/25/2023 COVID-19 (Pre-07/25) Pfizer Vaccine, mRNA, PF 06/26/2021,11/27/2020,11/06/2020 Influenza High-Dose Quadriva lent Preservative Free IM 11/03/2022 Influenza High-Dose Trivalen t Preservative Free IM 06/02/2024,07/23/2019,06/23/2018,06/21,08/30/2016,07/02/2015,08/28/2014 Influenza Quadrivalent Adjuv anted Preservative Free IM 06/27/2023,06/26/2021,07/08/2020 Influenza Quadrivalent Prese rvative Free IM 07/08/2020 Influenza, Unspecified Formulation 06/26/2021 Pneumococcal conjugate PCV13 08/28/2014 Pneumococcal polysaccharide PPSV23 09/04/2015 RSV Vaccine (monovalent, adjuvanted) 10/14/2023 Tdap 03/06/2025,07/02/2015 Zoster live 10/28/2014 Zoster recombinant 03/30/2019,01/03/2019 Family History Medical History Relation Comments Lyme disease Brother No Known Problems Daughter 1 No Known Problems Daughter 2 No Known Problems Daughter 3 Lung cancer Father Smoker since age 11 Cancer Mother Gallbladder canc er Diabetes type II Mother Pancreatic cancer Sister 1 with liver met s Osteoarthritis Sister 2 Breast cancer Sister 3 Diagnosed mid 60 s Colon cancer Neg Hx Glaucoma Neg Hx Heart attack Neg Hx Macular degeneration Neg Hx Prostate cancer Neg Hx Stroke Neg Hx Relation Status Comments Brother Alive Daughter 1 Alive Daughter 2 Alive Daughter 3 Alive Father (Age 66) Maternal Grandfather Maternal Grandmother Mother (Age 70) Paternal Grandfather Paternal Grandmother Sister 1 Alive Sister 2 Alive Sister 3 Alive Social History Tobacco Use Types Packs/Day Years Used Date Smoking Tobacco: Never Smokeless Tobacco: Never Tobacco Cessation:Counseling Given: Not Answered Alcohol Use Standard Drinks/Week Comments Not Currently 0 (1 standard drink = 0.6 oz pur e alcohol) Max 1 drinks/month (2024) Child or Family Care Answer Date Record ed Do you have problems with on e of the following making it difficult for you to work, study, or receive health care? No 03/29/2021 Education Answer Date Recorded Are you interested in more education? Not on harpal e 03/31/2023 Are you concerned about learning? Not on file 03/31/2023 No 03/31/2023 No 03/31/2023 Food Answer Date Recorded Within the past 6 months we worried whether our food would run out before we got money to buy more. Never True 03/29/2021 Within the past 6 months the food we bought just didn't last and we didn't have enough money to get more. Never True Residential Stability Answer Date Recor ded What is your housing situation today? I have rubi marleny 03/29/2021 How many times have you move d in the past 12 months? Zero (I did not move) 03/29/2021 06 Are you worried that in t he next 2 months, you may not have your own housing to live in? No 03/29/2021 Paying for Meds Answer Date Recorded Do you have trouble paying for medicines? No 03/29/2021 Paying Utility Bills Answer Date Record ed Do you have trouble paying your heating or elect ricity bill? No 03/29/2021 Transportation Answer Date Recorded Has the lack of transportati on kept you from medical appointments or from getting medications? No 03/29/2021 Unemployment Answer Date Recorded Are you currently unemployed or working on a part-time or temporary basis, and looking for work? No 03/29/2021 Digital Access Answer Date Recorded No 02/28/2023 No 02/28/2023 Reliable internet access at home? Not on file 02/28/2023 Device with a working camera? Not on file Intimate Partner Violence Answer Date R ecorded Denied Basic Needs Not on file 06/03/2025 In the past 12 months have y ou been in a relationship with a person who hurts, threatens, or tries to control you? No 06/03/2025 Worried food would run out Not on file 06/03 In the past 12 months have y ou been in a relationship with a person who hurts, threatens, or tries to control you? No 06/03/2025 Comments Unknown Sex and Gender Information Value Date Recorded Sex Assigned at Not on file Legal Sex Female 10:08 PM EDT Gender Identity Not on file Sexual Orientation Not on file Last Filed Vital Signs Vital Sign Reading Time Taken Comments Blood Pressure 118/66 06/10/2025 2:29 PM EDT Pulse 77 06/10/2025 2:29 PM EDT Temperature 36.9 C (98.5 F) 06/10/2025 2:29 PM EDT Respiratory Rate 18 01/14/2023 8:57 AM EDT Oxygen Saturation 98% 06/10/2025 2:29 PM EDT Inhaled Oxygen Concentration - - Weight 91.6 kg (202 lb) 06/10/2025 2:29 PM EDT Height 154.5 cm (5' 0.83 ) 06/10/2025 2:29 PM ED T Body Mass Index 38.38 06/10/2025 2:29 PM EDT Plan of Treatment Upcoming Encounters Date Type Department Care Team (Late st Contact Info) Description 08/09/2025 9:40 AM EST Office Visit [facility] [address] [place] [address] Rosemary Hough MD 22 [facility], 1st [place] [address] 11/22/2025 1:00 PM EST Office Visit [facility] [address] [place] [address] 3rd Floor, [address] [place], [place] [id number] Eliot Gottlieb MD 22 [facility], [address] [place] [address] 12/09/2025 12:30 PM EDT Office Visit [facility] Medicine [address] [place] [address] [place] [address] Zheng Crews CNP 22 [facility], [address] [place], [place] [id number] [email or web address] Health Maintenance Due Date Last Done Comments INFLUENZA VACCINE (#1) 2025 , 06/27/2023, 06/27/2023, Additional history exists COVID-19 VACCINE ( season) 2025 03/06/2025, 06/02/2024, 06/27/2023, Additional history exists DIABETIC EYE EXAM 07/31/2025 07/31/2024, , 02/17/2024, Additional history exists HEMOGLOBIN A1C 12/02/2025 06/04/2025, 01/02, 07/30/2024, Additional history exists BLOOD PRESSURE 12/08/2025 06/10/2025 DEPRESSION SCREENING 06/03/2026 06/03/2025, 05/20/20 25 CREATININE LEVEL 06/04/2026 06/04/2025, 07/2024, 04/07/2023, Additional history exists POTASSIUM LEVEL 06/04/2026 06/04/2025, 04/02, 04/07/2023, Additional history exists Adult Td,Tdap Booster 03/06/2035 03/06/2025, 015 PNEUMOCOCCAL VACCINES (50+ years) Completed 09/04/2015, 08/28/2014 ZOSTER VACCINES Completed 03/30/2019, 04/0 12/2018, 10/28/2014 HEPATITIS C SCREENING Completed 04/02/2021, 021 RSV VACCINE Completed 10/14/2023 OSTEOPOROSIS SCREENING INITIAL (ONE-TIME) Completed 06/10/2025, 04/11/2024, 04/06/2023 SMOKING STATUS SCREENING (Once After 26 Yrs) Completed 06/10/2025 HEPATITIS A VACCINES Aged Out No long er eligible based on patient's age to complete this topic HIB VACCINES Aged Out No longer eligi ble based on patient's age to complete this topic MENINGOCOCCAL VACCINES (ACWY) Aged Out No longer eligible based on patient's age to complete this topic MENINGOCOCCAL VACCINES (B) Aged Out N o longer eligible based on patient's age to complete this topic Medical Devices Not on file Procedures Procedure Name Priority Date/Time Associated Diagnosis Comments MAMMOGRAPHY Routine 07/04/2025 3:45 PM EDT MICROALBUMIN/CREATININ E RATIO, RANDOM URINE Routine 06/12/2025 10:00 AM EDT Type 2 diabetes mellitus with diabetic neuropathy, with long-term current use of insulin BI MAMMOGRAM SCREENING (BILATERAL) Routine 06/10/2025 3:08 PM EDT Screening mammogram for breast cancer BD DXA SCREENING Routine 06/10/2025 3:08 PM EDT Postmenopausal CBC Routine 06/04/2025 1:22 PM EDT Type 2 diabetes mellitus with diabetic neuropathy, with long-term current use of insulin LIPID PANEL Routine 06/04/2025 1:22 PM EDT Hyperlipidemia associated with type 2 diabetes mellitus COMPREHENSIVE METABOLIC PANEL (CMP) Routine 06/04/2025 1:22 PM EDT Type 2 diabetes mellitus with diabetic neuropathy, with long-term current use of insulin HEMOGLOBIN A1C Routine 06/04/2025 1:22 PM EDT Hyperlipidemia associated with type 2 diabetes mellitus Type 2 diabetes mellitus with diabetic neuropathy, with long-term current use of insulin DIABETES EYE EXAM FOR RESULT ENTRY ONLY Routine 07/31/2024 2:53 PM EDT HEPATITIS C ANTIBODY, QUALITATIVE Routine 04/02/2021 7:59 AM EDT Encounter for hepatitis C screening test for low risk patient from Last 3 Months or Most Recently Relevant to Health Maintenance Results * MAMMOGRAPHY FOR RESULT ENTRY ONLY (07/04/2025 3:45 PM EDT) us Historical Provider HEALTH MAINTENANCE Edited Result - Final * Microalbumin/creatinine ratio, random urine (06/12/2025 10:00 AM EDT) URINE MICROALBUMIN <1.2 0 - 2.3 mg/dL [facility] URINE CREATININE 113 mg/dL [facility] MICROALB/CRE RATIO NOT CALCULATED 0 - 20 mg/g Cre [facility] Comment:due to Microalbumin <1.2 Urine (Urine) 06/12/2025 10: 00 AM EDT 06/12/2025 11:27 AM EDT Zheng Crews [facility] LAB URINE ORDERABLES Maame hall Result Performing Organization Address City/State/[facility] Co de Phone Number [address] [address] * (ABNORMAL) Comprehensive metabolic panel (06/04/2025 1:22 PM EDT) SODIUM 139 133 - 146 mmol/L [facility] POTASSIUM 4.2 3.3 - 5.1 mmol/L [facility] CHLORIDE 107 96 - 108 mmol/L [facility] CO2 20(L) 21 - 35 mmol/L [facility] BUN 19 6 - 19 mg/dL [facility] CREATININE 1.00 0.5 - 1.5 mg/dL [facility] GLUCOSE 111(H) 70 - 99 mg/dL [facility] ALBUMIN 3.6(L) 3.9 - 4.8 g/dL [facility] TOTAL PROTEIN 6.5 6.5 - 8.0 g/dL [facility] CALCIUM 9.0 8.4 - 10.3 mg/dL [facility] ALKALINE PHOSPHATASE 103 39 - 117 U/L [facility] TOTAL BILIRUBIN 0.3 0.0 - 1.2 mg/dL [facility] AST 18 0 - 37 U/L [facility] ALT 11 0 - 40 U/L [facility] GLOBULIN 2.9 1 - 4.8 g/dL [facility] EGFR 57(L) >59 mL/min/1.7 3m2 [facility] Comment:Estimated glomerular filtration rate calculated using the CKD-EPI refit equation. ANION GAP 16 10 - 20 mmol/L [facility] Blood 06/04/2025 1:22 PM EDT 06/04/2025 1:29 PM EDT us Zheng Crews [facility] LAB BLOOD BKR ORDERABLES Final Result [address] [address] * (ABNORMAL) CBC (06/04/2025 1:22 PM EDT) WBC 8.15 4.00 - 11.00 K/uL [facility] RBC 4.14 4.00 - 5.20 M/uL [facility] HGB 12.0 12.0 - 16.0 g/dL [facility] HCT 38.9 36.0 - 46.0 % [facility] PLT 286 150 - 450 K/uL [facility] MCV 94.0 80.0 - 100.0 fL [facility] MCH 29.0 27.0 - 31.0 pg [facility] MCHC 30.8(L) 32.0 - 36.0 g/dL [facility] RDW 14.0 11.5 - 14.5 % [facility] MPV 10.4 8.4 - 12.0 fL [facility] NRBC 0.00 0.00 /100 WBCs [facility] ABSOLUTE NRBC 0.00 0.00 K/uL [facility] Blood 06/04/2025 1:22 PM EDT 06/04/2025 1:29 PM EDT [facility] LAB BLOOD BKR ORDERABLES Final Result Performing Organization Address City/[facility]/ZIP Co de Phone Number [address] [address] * Hemoglobin A1c (06/04/2025 1:22 PM EDT) HEMOGLOBIN A1C 5.8 4.3 - 5.8 % [facility] Blood 06/04/2025 1:22 PM EDT 06/04/2025 1:24 PM EDT [facility] LAB BLOOD BKR ORDERABLES Final Result Performing Organization Address [facility] Co de Phone Number [address] [address] * (ABNORMAL) Lipid panel (06/04/2025 1:22 PM EDT) HDL 45 mg/dL [facility] Comment: Interpretation <40 mg/dL: Low HDL cholesterol (major risk factor for CHD) Greater than or equal to 60 mg/dL: High HDL cholesterol ( negative risk factor for CHD) HDL - cholesterol is affected by a number of factors, e.g. smoking, excerise, hormones, sex and age. CHOLESTEROL 133 0 - 240 mg/dL [facility] TRIGLYCERIDES 213(H) 30 - 160 mg/dL [facility] LDL 45(L) 50 - 129 mg/dL [facility] Comment: LDL levels in terms of risk for coronary heart disease: <100 mg/dL: Optimal 100-129 mg/dL: Near or above optimal 130-159 mg/dL: Borderline high 160-189 mg/dL: High >190 mg/dL: Very High CARDIAC RISK RATIO 3.0(L) 3.3 - 4.4 C [facility] Blood 06/04/2025 1:22 PM EDT 06/04/2025 1:29 PM EDT [facility] LAB BLOOD BKR ORDERABLES Final Result Performing Organization Address City/[facility]/ZIP Co de Phone Number [address] [address] * DIABETES EYE EXAM FOR RESULT ENTRY ONLY (07/31/2024 2:53 PM EDT) us Historical Provider HEALTH MAINTENANCE Edited Result - Final * Hepatitis C antibody, qualitative (04/02/2021 7:59 AM EDT) HCV NON-REACTIV E NON-REACTI VE [facility] Blood 04/02/2021 7:59 AM EDT 04/02/2021 8:04 AM EDT Zheng Crews [employer] LAB BLOOD BKR ORDERABLES Final Result [address] [address] from Last 3 Months or Most Recently Relevant to Health Maintenance Insurance [employer] MEDEX SUPPLEMENT MEDICARE PART A & B [employer] MEDEX SUPPLEMENT MEDICARE PART A & B [employer] MEDEX SUPPLEMENT MEDICARE PART A & B [employer] MEDEX SUPPLEMENT MEDICARE PART A & B [employer] MED[employer] SUPPLEMENT MEDICARE PART A & B [employer] MEDEX SUPPLEMENT MEDICARE PART A & B [employer] MEDEX SUPPLEMENT MEDICARE PART A & B [employer] MEDEX SUPPLEMENT MEDICARE PART A & B [employer] MEDEX SUPPLEMENT MEDICARE PART A & B Advance Directives For more information, please contact: [phone] (9AM - 5PM [facility], Tuesday-Tuesday) Documents on File Type Date Recorded 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 2 [place] [address] Optometry 11/03/22 Eliot Gottlieb MD 22 [facility], [address] [place] [address] [email or web address] Cardiology 11/03/22 Ailin Mendoza MD [address] [address] Dermatology 04/11/24 Zheng Crews CNP 22 [facility], [address] [place] [address] [email or web address] Insurance Assigned Provider 01/06/25 Franck Brown MD [address] [place] [address] Ophthalmology 06/10/25 Additional Source Comments The information contained in this document represents components of the legal health record. It is not the complete legal health record.[facility]
--- OUTSIDE RECORDS SUMMARY | 2025-08-08 13:01 | XMS_ITS | Encounter Summary ---
Author Organization [facility] Address [address] [place] [address] Phone Care Team Providers Care Industrial Custodian Name Role Phone Zheng Crews BULK PLANT AGENT Primary Care Provider [phone] Gordo Silver MD Unavailable [phone] Cathy Mantilla OD Unavailable [phone] Tj Hicks MD Unavailable Constantino Sher MD Unavailable Vilma Houser MD Unavailable [phone] Rosemary Hough MD Unavailable [phone] Chani Potter OD Unavailable Unavailable Eliot Gottlieb MD Unavailable Ailin Mendoza MD Unavailable [phone] Zheng Crews BULK PLANT AGENT Unavailable Franck Brown MD Unavailable Encounter Details Date Type Department Care Team (Late st Contact Info) Description 04/12/2019 EpicOnHand Encounter [facility] [address] [place] [address] Zheng Crews CNP 22 [facility], [address] [place] [address] [email or web address] Social History Tobacco Use Types Packs/Day Years Used Date Smoking Tobacco: Never Smokeless Tobacco: Never Alcohol Use Standard Drinks/Week Comments Yes 0 (1 standard drink = 0.6 oz pur e alcohol) rare Comments Unknown Sex and Gender Information Value Date Recorded Sex Assigned at Not on file Legal Sex Female 10:08 PM EDT Gender Identity Not on file Sexual Orientation Not on file documented as of this encounter Plan of Treatment Upcoming Encounters Date Type Department Care Team (Late st Contact Info) Description 08/09/2025 9:40 AM EST Office Visit [facility] [address] [place] [address] [place] [address] Rosemary Hough MD [address] [place] [address], 1st [place] [address] 11/22/2025 1:00 PM EST Office Visit [facility] [address] [place] [address] [address]rd Floor, [address] [place] [address] Eliot Gottlieb MD [address] [place] [address], [address] [place] [address] 12/09/2025 12:30 PM EDT Office Visit [facility] [address] [place] [address] [place] [address] Zheng Crews CNP [address] [place] [address], [address] [place] [address] [email or web address] documented as of this encounter Visit Diagnoses Not on filedocumented in this encounter Additional Health Concerns Infection Onset Date Last Indicated Resolved Time CoV-Presumed 04/08/2022 04/08/2022 04/29/2022 1:21 AM EDT Assessment Noted Time PHQ-2 Depression Total Score: 0 09/19/20 18 12:18 PM EST documented as of this encounter Care Teams Industrial Custodian Relationship Specialty Start Date End Date Zheng Crews CNP 22 [facility], [address] [place] [address] [email or web address] PCP - General 10/10/17 Gordo Silver MD 22 [facility], [address] [place] [address] [email or web address] Insurance Assigned Provider 01/07/24 01/06/25 Cathy Mantilla OD [address] [place] [address] Optometry 03/31/21 11/02/22 Tj Hicks MD [address] [address] Ophthalmology 03/31/21 06/09/25 InstrumConstantino MD [address] [place] [address] Dr [address] [place] [address] Orthopedic Surgery 03/31/21 Vilma Houser MD [address] [place] [address] [address] [email or web address] Cardiology 03/31/21 02/15/22 Rosemary Hough MD 22 [facility], 1st [place] [address] [email or web address] Internal Medicine 03/31/21 Chani Potter OD 33 [facility] 2 [place] [address] Optometry 11/03/22 Eliot Gottlieb MD [address] [place] [address], [address] [place] [address] [email or web address] Cardiology 11/03/22 Ailin Mendoza MD 3455 [facility] 5 [place] [address] Dermatology 04/11/24 Zheng Crews CNP 22 [facility], [address] [place] [address] [email or web address] Insurance Assigned Provider 01/06/25 Franck Brown MD [address] [place] [address] Ophthalmology 06/10/25 documented as of this encounter Additional Source Comments The information contained in this document represents components of the legal health record. It is not the complete legal health record.[facility]
--- OUTSIDE RECORDS SUMMARY | 2025-08-08 13:01 | XMS_ITS | Encounter Summary ---
Author Organization [facility] Address [address] [place] [address] Phone Care Team Providers Care Ripsaw Grader Name Role Phone Zheng Crews CNP Primary Care Provider [phone] Constantino Sher MD Unavailable [phone] Rosemary Hough MD Unavailable [phone] Chani Potter OD Unavailable Unavailable Eliot Gottlieb MD Unavailable [phone] Ailin Mendoza MD Unavailable [phone] Zheng Crews [facility] Unavailable Franck Brown MD Unavailable Encounter Details Date Type Department Care Team (Late st Contact Info) Description 07/08/2025 Orders Only [facility] [address] [place] [address] [place] [address] Provider, MD Ita [address] [place] [address] Social History Tobacco Use Types Packs/Day Years Used Date Smoking Tobacco: Never Smokeless Tobacco: Never Alcohol Use Standard Drinks/Week Comments Not Currently [...] your housing situation today? I have rubi sing 03/29/2021 How many times have you move [...] Description 08/09/2025 9:40 AM EST Office Visit [facility] [address] [place] [address] Rosemary Hough MD 22 [facility], 1st [place] [address] 11/22/2025 1:00 PM EST Office Visit [facility] [address] [place] [address] 3rd Floor, [address] [place] [address] Eliot Gottlieb MD [address] [place] [address], [address] [place] [address] 12/09/2025 12:30 PM EDT Office Visit [facility] [address] [place] [address] Zheng Crews CNP [address] [place] [address], [address] [place] [address] [email or web address] documented as of this encounter Procedures Procedure Name Priority Date/Time Associated Diagnosis Comments MAMMOGRAPHY Routine 07/04/2025 3:45 PM EDT documented in this encounter Results * MAMMOGRAPHY FOR RESULT ENTRY ONLY (07/04/2025 3:45 PM EDT) us Historical Provider HEALTH MAINTENANCE Edited Result - Final documented in this encounter Visit Diagnoses Not on filedocumented in this encounter Additional Health Concerns Assessment Noted Time PHQ-9 Depression Total Score: 7 05/20/20 25 12:29 PM EDT PHQ-2 Depression Total Score: 0 06/03/20 25 3:21 PM EDT documented as of this encounter Care Teams Ripsaw Grader Relationship Specialty Start Date End Date Zheng Crews CNP 22 [facility], [address] [place] [address] PCP - General 10/10/17 Constantino Sher MD [address] [place] [address] [address] [place] [address] Orthopedic Surgery 03/31/21 Rosemary Hough MD 22 [facility], 1st [place] [address] Internal Medicine 03/31/21 Chani Potter OD [address] [facility] 2 [place] [address] Optometry 11/03/22 Eliot Gottlieb MD 22 [facility], [address] [place] [address] Cardiology 11/03/22 Ailin Mendoza MD 3455 [facility] 5 [place] [address] Dermatology 04/11/24 Zheng Crews CNP 22 [facility], [address] [place] [address] Insurance Assigned Provider 01/06/25 Franck Brown MD [address] [place] [address] Ophthalmology 06/10/25 documented as of this encounter Additional Source Comments The information contained in this document represents components of the legal health record. It is not the complete legal health record.[facility]
== END 2025-08-08 10:58 | disposition home or self-care (01) ==
LOC: HO.HOS 10:44
PROVIDERS: PCP Nurse Practitioner Adult Health; Visit Provider Physician Assistant
DX: M17.11 Unilateral primary osteoarthritis, right knee (principal)
CPT/HCPCS: 20610

== ENCOUNTER → 2025-08-08 10:43 | Outpatient (BNVA) | payer MEDICARE, SELFPAY | PROVIDERS: PCP Nurse Practitioner Adult Health; Visit Provider Physician Assistant | DX: M17.11 Unilateral primary osteoarthritis, right knee (principal); Z79.52 Long term (current) use of systemic steroids | CPT/HCPCS: 20610; J0665; J1100; J2003 ==